=== PATIENT | male | born 1995 | race Caucasian/White ===

== ENCOUNTER 2018-12-15 00:54 | Emergency (ER) | payer OTHER ==
[~2018-12-15] VITALS: Ht 172.7 cm; Wt 93.8 kg
[~2018-12-15 00:54] MED LIST: NO MEDS
[2018-12-15 00:59] VITALS: Ht 172.7 cm; Wt 93.8 kg
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
[2018-12-15] MEDS ORDERED: HYDROCODONE/APAP (10/325) TAB PO ONE (05:00)
[2018-12-15] MEDS ORDERED: IOHEXOL 300MG/ML 150 ML BTL ONE (05:59)
[2018-12-15] MEDS ORDERED: SOD CHLORIDE 0.9% 100 ML ONE (05:59)
[2018-12-15] MEDS ORDERED: SOD CHLORIDE 0.9% 1,000 ML IV ONE (06:00)
[2018-12-15 08:23] VITALS: BP 120/72; PULSE 58; RESP 18
[2018-12-15] MEDS ORDERED: IBUP-1542 PO (08:23)
== END 2018-12-15 08:42 | disposition home or self-care (01) ==
LOC: FTE 00:54
DX: S70.211A Abrasion, right hip, initial encounter (principal); R51 Headache; V89.2XXA Person injured in unspecified motor-vehicle accident, traffic, initial encounter
CPT/HCPCS: 36415; 70450; 71270; 72125; 74178; 80053; 81001; 83690; 85025; 85610; 85730; J7030; Q9967; Z7502; Z7610